=== PATIENT | male | born 1955 | race Caucasian/White ===

== ENCOUNTER 2017-07-25 14:20 | Emergency (ER) | payer MEDICAID ==
[~2017-07-25] VITALS: Ht 185.4 cm; Wt 72.6 kg
[2017-07-25 14:25] VITALS: BP 123/80
[2017-07-25 14:53] VITALS: BP 123/80
--- NOTE | 2017-07-25 21:49 | Emergency Room Report ---
History of Present Illness General Chief Complaint: General Complaint Source: EMS Present Illness HPI 61-year-old male history of inguinal hernia repair on the right side and left inguinal hernia presenting with one day of left groin pain. Patient states that for years his left inguinal hernia has been bothering him however he has had to go to the emergency room multiple times to get it reduced. Patient states that he has been meaning to get it repaired it with a surgeon however cannot get an appointment. Patient is now reporting left groin pain for one day with swelling. Patient denies any fever chills nausea vomiting. Patient states he has chronic constipation but went to the bathroom yesterday. Allergies: Coded Allergies: No Known Allergies (Unverified , 07/25/17) Patient History Past Medical History: see triage record Past Surgical History: none, other - Right inguinal hernia repair Pertinent Family History: none Nursing Documentation-H Past Medical History: No History, Except For Hx Cardiac Problems: No - INGUINAL HERINA SURGERY 2011 Review of Systems All Other Systems: negative except mentioned in HPI Physical Exam Vital Signs Date Time Temp Pulse Resp B/P (MAP) Pulse Ox O2 Delivery O2 Flow Rate FiO2 07/25/17 14:15 97.3 72 16 123/80 100 Room Air Sp02 EP Interpretation: reviewed, normal General Appearance: normal inspection, well appearing, no apparent distress, alert, GCS 15, non-toxic Head: normocephalic, atraumatic Eyes: bilateral eye normal inspection, bilateral eye PERRL, bilateral eye EOMI ENT: normal ENT inspection, normal pharynx, normal voice, moist mucus membranes Neck: normal inspection, full range of motion, supple Respiratory: normal inspection, lungs clear, normal breath sounds, no respiratory distress, no retraction, no wheezing, speaking full sentences, chest symmetrical Cardiovascular #1: normal inspection, regular rate, rhythm, no edema, normal capillary refill Gastrointestinal: normal inspection, non tender, soft, no guarding, other - Left inguinal hernia soft reducible Musculoskeletal: normal inspection, back normal, normal range of motion, non- tender Neurologic: normal inspection, alert, oriented x3, responsive, motor strength/ tone normal, sensory intact, normal gait, speech normal Psychiatric: normal inspection, judgement/insight normal, memory normal Skin: normal inspection, normal color, no rash, warm/dry, well hydrated, normal turgor Medical Decision Making Diagnostic Impression: Primary Impression: Recurrent left inguinal hernia ER Course 61-year-old male with left inguinal hernia pain Patient's left inguinal hernia was reducible upon physical examination, however recurrent when patient gets up and walks After physical examination I wanted to apply ice to the inguinal hernia and attempt another reduction however patient became very upset, got up, got into argument with the nurses and walked out of the emergency room. The patient was instructed that she should stay in the emergency room in order to complete care however patient was very angry and left. Patient was ambulatory and appeared nontoxic. I examined the patient the inguinal hernia was not strangulated. Last Vital Signs Date Time Temp Pulse Resp B/P (MAP) Pulse Ox O2 Delivery O2 Flow Rate FiO2 07/25/17 14:53 97.3 16 123/80 100 Room Air 07/25/17 14:15 72 Disposition: ELOPED Condition: Improved Referrals: [facility],REFERRING (PCP) Frances Holland M.D. Jul 25, 2017 21:49
== END 2017-07-25 14:53 | disposition left against medical advice (07) ==
LOC: EDBD 14:20 → EMR 14:45
DX: K40.90 Unilateral inguinal hernia, without obstruction or gangrene, not specified as recurrent (principal)
CPT/HCPCS: 99284

== ENCOUNTER 2018-04-05 18:55 | Emergency (ER) | payer MEDICAID ==
[~2018-04-05] VITALS: Ht 185.4 cm; Wt 81.6 kg
--- NOTE | 2018-04-05 19:04 | Emergency Room Report ---
History of Present Illness General Chief Complaint: Medical Clearance Source: Patient Present Illness HPI 62 yo male patient presents to ER BIB for clearance for fpc. patient denies acute complaints at this time. Patient denies fever, chest pain, shortness breath. Patient denies hitting head or lost consciousness. Patient denies abdominal pain. Patient denies past medical history. please reports patient has a history of seizures, no recent seizure activity. Patient denies suicidal or homicidal ideation. Allergies: Coded Allergies: No Known Allergies (Unverified , 07/25/17) Patient History Past Medical History: see triage record Reviewed Nursing Documentation: PMH: Agreed; PSxH: Agreed Nursing Documentation-PMH Past Medical History: No History, Except For Hx Cardiac Problems: No - INGUINAL HERINA SURGERY 2011 Hx Seizures: Yes Review of Systems All Other Systems: negative except mentioned in HPI Physical Exam Sp02 EP Interpretation: reviewed, normal General Appearance: well appearing, no apparent distress, alert, GCS 15, non- toxic Head: normocephalic, atraumatic, other - negative Raccoon eyes, negative Marie sign Eyes: bilateral eye normal inspection, bilateral eye PERRL, bilateral eye EOMI ENT: hearing grossly normal, normal pharynx, no angioedema, normal voice, uvula midline, moist mucus membranes Neck: full range of motion Respiratory: lungs clear, normal breath sounds, no rhonchi, no respiratory distress, no accessory muscle use, no wheezing, speaking full sentences Cardiovascular #1: regular rate, rhythm, no edema Gastrointestinal: non tender, soft, no mass, non-distended, no guarding, no rebound Musculoskeletal: back normal, digits/nails normal, gait/station normal, normal range of motion, non-tender Neurologic: alert, oriented x3, responsive, motor strength/tone normal, sensory intact Psychiatric: mood/affect normal Skin: no rash Medical Decision Making PA Attestation Dr. Guerra is my supervising Physician whom patient management has been discussed with. Diagnostic Impression: Primary Impression: Medical clearance for incarceration ER Course Pt. presents to the ED requesting medical clearance for booking. Multiple differentials considered. Patient Vitals Signs WNL, patient is afebrile. PE benign. No skull depression, lungs clear to auscultation, no abdominal TTP. Patient not suicidal or homicidal at this time. Patient in no acute distress, nontoxic appearing, breathing without difficulty. ORDERS: none required at this time, the diagnosis is clinical ED COURSE: Patient observed drinking water in ER without difficulty. Patient has no acute complaints. Patient wants to be discharged to police custody. Patient follow-up with primary care doctor and/or neurologist for treatment and management of seizures. denies recent seizures. Does not require workup at this time. DISCHARGE: At this time pt. is stable for d/c to police custody. Will provide printed patient care instructions, and any necessary prescriptions. Care plan and follow up instructions have been discussed with the patient prior to discharge - Please note that this Emergency Department Report was dictated using [employer] digger technology software, occasionally this can lead to erroneous entry secondary to interpretation by the dictation equipment. Disposition: D/C TO LAW ENFORCEMENT IN [facility]UST Condition: Stable Patient Instructions: Seizure, Adult, [id number] Additional Instructions: Followup with primary care provider in 3 -5 days. Followup with neurologist for seizure disorder. Take medications as directed. Patient questions asked and answered. ER precautions given, patient instructed to return to ER immediately for any new or worsening of symptoms. Mikhail Apple April 05, 2018 19:04
[2018-04-05 19:06] VITALS: BP 151/88
[2018-04-05 19:17] VITALS: BP 151/88
== END 2018-04-05 20:00 ==
LOC: EMR 19:30
DX: Z02.89 Encounter for other administrative examinations (principal)
CPT/HCPCS: 99283